=== PATIENT | male | born 1965 | race African-American/Black ===

== ENCOUNTER 2017-06-30 06:06 | Emergency (ER) | payer OTHER, SELFPAY ==
[2017-06-30] MEDS ORDERED: Ibuprofen 800 MG TAB ONE (07:04)
[2017-06-30] MEDS ORDERED: HYDROcodone/Acetaminophen 10/325 mg Tablet ONE (07:04)
[2017-06-30] MEDS ORDERED: predniSONE 20 MG TAB ONE (07:04)
== END 2017-06-30 07:36 | disposition home or self-care (01) ==
LOC: NAV ERS 06:06
DX: M54.41 Lumbago with sciatica, right side (principal); M25.511 Pain in right shoulder; K21.9 Gastro-esophageal reflux disease without esophagitis; F17.220 Nicotine dependence, chewing tobacco, uncomplicated; Z79.899 Other long term (current) drug therapy
CPT/HCPCS: 99283; J7506

== ENCOUNTER 2018-03-17 09:38 | Emergency (ER) | payer OTHER ==
[2018-03-17] MEDS ORDERED: Cyclobenzaprine 10 MG TAB ONE (09:55)
[2018-03-17] MEDS ORDERED: Ketorolac Tromethamine 60 MG/2 ML VIAL ONE (09:55)
== END 2018-03-17 10:23 | disposition home or self-care (01) ==
LOC: NAV ERS 09:38
DX: S39.012A Strain of muscle, fascia and tendon of lower back, initial encounter (principal); K21.9 Gastro-esophageal reflux disease without esophagitis; F17.220 Nicotine dependence, chewing tobacco, uncomplicated; Z79.899 Other long term (current) drug therapy; X50.0XXA Overexertion from strenuous movement or load, initial encounter
CPT/HCPCS: 96372; J1885

== ENCOUNTER 2018-04-06 23:00 | Emergency (ER) | payer OTHER ==
[2018-04-06] MEDS ORDERED: Lidocaine Viscous Sol 2% 15 ml UD Cup ONE (23:07)
== END 2018-04-06 23:58 | disposition home or self-care (01) ==
LOC: NAV ERS 23:00
DX: T16.2XXA Foreign body in left ear, initial encounter (principal); G89.29 Other chronic pain; K21.9 Gastro-esophageal reflux disease without esophagitis; F17.220 Nicotine dependence, chewing tobacco, uncomplicated; Z79.891 Long term (current) use of opiate analgesic; Z79.899 Other long term (current) drug therapy
CPT/HCPCS: 99282

== ENCOUNTER 2018-09-04 19:43 | Emergency (ER) | payer OTHER ==
[2018-09-04] MEDS ORDERED: Acetaminophen/Codeine 30-300mg Tablet ONE (20:13)
[2018-09-04] MEDS ORDERED: AMOXicillin 250 MG CAP ONE (20:13)
== END 2018-09-04 20:20 | disposition home or self-care (01) ==
LOC: NAV ERS 19:43
DX: K02.9 Dental caries, unspecified (principal); K21.9 Gastro-esophageal reflux disease without esophagitis; F17.220 Nicotine dependence, chewing tobacco, uncomplicated; Z79.899 Other long term (current) drug therapy
CPT/HCPCS: 99283

== ENCOUNTER 2020-10-02 21:04 | Emergency (ER) | payer OTHER ==
[2020-10-03 14:53] LABS: SARS-CoV-2 MS2 Positive; SARS-CoV-2 N Gene Negative; SARS-CoV-2 S Gene Negative; SARS-CoV-2 by NAA Not Detected (NotDetected); SARS-CoV-2 orf1ab Negative
== END 2020-10-02 22:14 | disposition home or self-care (01) ==
LOC: NAV ERS 21:04
DX: R50.9 Fever, unspecified (principal); R05 Cough; R09.89 Other specified symptoms and signs involving the circulatory and respiratory systems; Z20.828 Contact with and (suspected) exposure to other viral communicable diseases; K21.9 Gastro-esophageal reflux disease without esophagitis; F17.220 Nicotine dependence, chewing tobacco, uncomplicated
CPT/HCPCS: 87635; 87804; 99283; U0003